=== PATIENT | male | born 1985 | race Caucasian/White ===

== ENCOUNTER 2021-10-28 16:48 | Emergency (ER) | payer OTHER ==
[~2021-10-28] VITALS: Ht 182.9 cm; Wt 95.3 kg
--- NOTE | 2021-10-28 17:12 | ED Upper Extremity ---
General Chief Complaint: Laceration Stated Complaint: WC,R ARM LAC Source: patient History of Present Illness Date Seen by Provider: Oct 28, 2021 Time Seen by Provider: 17:12 Initial Comments 36-year-old male presenting with laceration to his right forearm. He was at work and had a total cut into his arm. He denies any numbness or tingling in his fingers. He has no weakness or loss of motor skill. He has no other injuries. He thinks his last tetanus was more than 5 years ago. He has no allergies to medications. He has had stitches before and had no reaction to medications or complications. Onset: just prior to arrival Severity: mild Pain/Injury Location: right forearm Method of Injury: incised Modifying Factors: Worse With Movement Allergies and Home Medications Allergies Coded Allergies: No Known Drug Allergies (Unverified , 10/28/21) Patient Home Medication List Home Medication List Reviewed: Yes Review of Systems Constitutional: No chills, No fever EENTM: no symptoms reported Respiratory: no symptoms reported Cardiovascular: no symptoms reported Gastrointestinal: no symptoms reported Genitourinary: no symptoms reported Musculoskeletal: see HPI, other (Mild pain around the site of cut) Skin: other (Laceration to the right forearm) Psychiatric/Neurological: Denies Numbness, Denies Paresthesia, Denies Weakness Past [id number]-[id number] Hx Patient Social History Tobacco Use?: Yes Tobacco type used: Cigarettes Smoking Status: Current Everyday Smoker Smokeless Tobacco Frequency: Never a User Use of E-Cig and/or Vaping dev: No Use of E-Cig and/or Vaping Brooks: Never a User Substance use?: No Alcohol Use?: Yes Alcohol Frequency: Once in a while Pt feels they are or have been: No Physical Exam Vital Signs Vital Signs - First Documented 10/28/21 16:51 Temp 37.1 Pulse 92 Resp 16 B/P (MAP) 168/87 (114) O2 Delivery Room Air Capillary Refill : Height, Weight, BMI Height: '" Weight: lbs. oz. kg; BMI Method: General Appearance: WD/WN, no apparent distress Cardiovascular: normal peripheral pulses Elbow/Forearm: Right, soft tissue tenderness (Right forearm has a laceration and soft tissue tenderness around it.) Wrist: Yes normal inspection, Yes non-tender, Yes no evidence of injury, Yes normal ROM Hand: normal inspection, non-tender, no evidence of injury, normal ROM, Bilateral Neurologic/Tendon: normal sensation, normal motor functions, normal tendon functions Neurologic/Psychiatric: alert, oriented x 3 Skin: normal color, warm/dry, other (Laceration to the right forearm) Procedures/Interventions Wound Location: Upper Extremities (right forearm) Wound Length (cm): 2.8 Wound's Depth, Shape: linear, sub Q Wound Explored: clean Anesthesia: 1% Lidocaine Volume Anesthetic (ccs): 5 Suture: Ethlion Suture Size: 4-0 Number of Sutures: 7 Layer Closure?: 1 Sterile Dressing Applied?: Yes Progress After obtaining verbal informed consent from the patient the wound was anesthetized with 1% plain lidocaine. A total of 5 mL of 1% plain lidocaine were infiltrated around the laceration. Then using chlorhexidine scrub soap and sterile saline the wound was scrubbed with sterile gauze. There were no foreign bodies. Patient tolerated cleaning well without any complication. Using 4-0 Ethilon a total of 7 simple interrupted stitches were placed. Wound edges were well approximated patient tolerated procedure well without any complications. Counseled to have stitches out in 10 to 14 days. Counseled on follow-up and return precautions. Nurse applied a sterile dressing with antibiotic ointment and nonadherent dressing covered with Kota bandage for compression Progress/Results/Core Measures Results/Orders My Orders Orders - MARIA ANTONIA GERMAN MD Suture Set At Bedside (10/28/21 17:38) Wound Dressing-Ed (10/28/21 17:38) Lidocaine 1% Inj 20 Ml (Xylocaine 1% Inj (10/28/21 17:38) Dipht,Pertuss(Acell),Tet Adult (Boostrix (10/28/21 17:45) Lidocaine 1% Inj 50 Ml (Xylocaine 1% Inj (10/28/21 17:42) Medications Given in ED Current Medications Medications Dose Ordered Sig/Yvonne Route Start Time Stop Time Status Last Admin Dose Admin Diphtheria/ Tetanus/Acell Pertussis 0.5 ml ONCE ONCE IM 10/28/21 17:45 10/28/21 17:46 DC 10/28/21 17:46 0.5 ML Lidocaine HCl 50 ml STK-MED ONCE .ROUTE 10/28/21 17:42 10/28/21 17:46 DC 10/28/21 17:47 10 ML Vital Signs/I&O 10/28/21 16:51 Temp 37.1 Pulse 92 Resp 16 B/P (MAP) 168/87 (114) O2 Delivery Room Air Progress Progress Note : Progress Note Tetanus booster was updated and stitches were applied to approximate the wound edges. Counseled on follow-up and return precautions. Light duty until stitches removed in 10-14 days Departure Impression Primary Impression: Laceration of right forearm without complication Qualified Codes: S51.811A - Laceration without foreign body of right forearm, initial encounter Disposition: HOME, SELF-CARE Condition: Stable Departure-Patient Inst. Decision time for Depature: 18:23 Referrals: NO,LOCAL PHYSICIAN (PCP) [place] Phys[place] [facility] [phone] to establish primary care if needed Patient Instructions: Laceration Repair With Stitches ED Add. Discharge Instructions: Keep wound clean and dry for the first 24 hours. After that you may remove the initial dressing and wash with soap and water. Do not soak the wound. Apply antibiotic ointment and a clean dry dressing at least twice a day. Change the dressing as needed to make sure it stays clean. Have the stitches removed in 10 to 14 days. You may return to the emergency department to have the stitches removed or follow-up through the clinic. If you see signs of infection such as pus draining from the wound, redness streaking up your arm, fever over 101 Fahrenheit then return or be seen sooner. All discharge instructions reviewed with patient and/or family. Voiced understanding. MARIA ANTONIA GERMAN MD Oct 28, 2021 17:12
[2021-10-28] MEDS ORDERED: LIDOCAINE 1% INJ 20 ML VIAL INJ STA (17:38)
[2021-10-28] MEDS ORDERED: LIDOCAINE 1% INJ 50 ML (XYLOCAINE) VIAL ONE (17:42)
[2021-10-28] MEDS ORDERED: TETANUS,DIPTH,PERTUSS P/F (BOOSTRIX) 0.5 ML VIAL IM ONE (17:45)
[2021-10-28 18:40] VITALS: BP 144/91
== END 2021-10-28 18:40 | disposition home or self-care (01) ==
LOC: ER FS 16:51
DX: S51.811A Laceration without foreign body of right forearm, initial encounter (principal); F17.210 Nicotine dependence, cigarettes, uncomplicated; Z23 Encounter for immunization; W26.8XXA Contact with other sharp object(s), not elsewhere classified, initial encounter
CPT/HCPCS: 90715; 99282

== ENCOUNTER 2021-11-07 15:23 | Emergency (ER) | payer OTHER ==
[~2021-11-07] VITALS: Ht 182.8 cm; Wt 100.0 kg
[2021-11-07 15:29] VITALS: BP 135/91
== END 2021-11-07 15:47 | disposition home or self-care (01) ==
LOC: EDUNIT# 15:23 → ER FS 15:24
DX: Z48.02 Encounter for removal of sutures (principal)